=== PATIENT | male | born 1930 | race Caucasian/White ===

== ENCOUNTER 2016-08-18 09:26 | Emergency (ER) | payer BC, MEDICARE, OTHER ==
[2016-08-18] MEDS ORDERED: Lidocaine 1% 20 ML MDV INJECT ONE (10:14)
--- NOTE | 2016-08-18 10:14 | EDM.PDOC ---
ED HPI GENERAL MEDICAL PROBLEM - General Chief Complaint: Laceration Stated Complaint: FELL HIT HEAD Time Seen by Provider: 08/18/16 10:05 Source of Information: Reports: Patient History Limitations: Reports: No Limitations - History of Present Illness INITIAL COMMENTS - FREE TEXT/NARRATIVE: HISTORY AND PHYSICAL: History of present illness: [Patient is brought to the emergency room from the [facility]. He was found lying on the floor of his room in a pool of blood with bleeding from his head. Nursing staff believe the time of the fall was about 845 this morning. Patient is on hospice services. Hospice staff placed Steri-Strips over the laceration and contacted family who do not want any aggressive measures or diagnostic testing performed. Dr. Bagley was on [facility] rounds this morning and saw the patient and requested that he be transferred to the emergency room to have sutures placed to the laceration. Family agreed to have patient come to the ER for sutures but has refused any diagnostics at this time. The patient is largely nonverbal and does not answer when asked questions. [employer] is at the bedside. ] Review of systems: As per history of present illness and below otherwise all systems reviewed and negative. Past medical history: As per history of present illness and as reviewed below otherwise noncontributory. Surgical history: As per history of present illness and as reviewed below otherwise noncontributory. Social history: No reported history of drug or alcohol abuse. Family history: As per history of present illness and as reviewed below otherwise noncontributory. Physical exam: HEENT: 1.5cm x 6cm flap type laceration to L forehead, extending above left eyebrow to hairline. Swelling and mild ecchymosis is present. No foreign bodies noted. Impression: [Left forehead laceration] Plan: [Wound is closed as described in procedure note. Triple antibiotic ointment, Steri-Strips and pressure dressing are applied.] Definitive disposition and diagnosis as appropriate pending reevaluation and review of above. Head Pain Score (Numeric/FACES): 6 - Related Data Allergies Allergy/AdvReac Type Severity Reaction Status Date / Time folic acid Allergy Cannot Verified 08/18/16 10:12 Remember pollen extracts Allergy Cannot Verified 08/18/16 10:12 Remember Home Meds: Home Meds Acetaminophen [Tylenol Extra Strength] 1,000 mg PO ASDIRECTED PRN 02/10/15 [ History] Aspirin 81 mg PO DAILY 02/10/15 [History] Calcium Citrate/Vitamin D3 [Calcium Cit-Vit D 315-200] 1 tab PO BID 02/10/15 [ History] Hydrochlorothiazide 25 mg PO DAILY 02/10/15 [History] Multivitamin [Multivitamins] 1 tab PO DAILY 02/10/15 [History] Tamsulosin HCl 0.4 mg PO BEDTIME 02/10/15 [History] Mineral Oil/Petrolatum,White [Systane Nighttime Eye Oint] 1 applic EYEBOTH BEDTIME 02/11/15 [History] Psyllium Husk/Ca Carbonate [Metamucil Plus Calcium Capsule] 1 cap PO DAILY PRN 02/11/15 [History] Chlorpheniramine Maleate 4 mg PO ASDIRECTED PRN 02/27/15 [History] Loperamide [Imodium AD] 2 mg PO Q6H PRN 02/27/15 [History] Mag Hydrox/Al Hydrox/Simeth [Maalox Maximum Strength Susp] 30 ml PO ASDIRECTED PRN 03/02/15 [History] Dicyclomine HCl [Bentyl] 20 mg PO Q4H 07/10/15 [History] Rivastigmine [Exelon] 4.5 mg PO BIDMEALS 07/10/15 [History] Patient's Own Medication [Ptom] 2 each EYEBOTH BID each 07/12/15 [Rx] Lisinopril [Prinivil] 20 mg PO DAILY 12/14/15 [History] Loteprednol Etabonate [Alrex] 2 drop OP BID 12/14/15 [History] Simvastatin [Zocor] 20 mg PO BEDTIME 12/14/15 [History] Triamcinolone Acetonide [Triamcinolone Acetonide 0.1% Crm] 15 gm TOP TID [History] Past Medical History HEENT History: Reports: Other (See Below) Other HEENT History: dry eyes, chronic sinusitis Cardiovascular History: Reports: High Cholesterol, Hypertension Respiratory History: Reports: Pneumonia, Recurrent Gastrointestinal History: Reports: Hemorrhoids Musculoskeletal History: Reports: Other (See Below) Other Musculoskeletal History: generalized weakness Neurological History: Reports: Alzheimers Disease, Other (See Below) Other Neuro History: Lewy Body dementia Psychiatric History: Reports: Other (See Below) Other Psychiatric History: wandering disease Hematologic History: Reports: Anemia - Past Surgical History Dermatological Surgical History: Reports: Other (See Below) Social & Family History - Family History Family Medical History: Unobtainable Cardiac: Reports: [place] Neurological: Reports: Dementia Psychiatric: Reports: Schizophrenia, Other (See Below) Other Psychiatric Family History: mustapha Endocrine/Metabolic: Reports: Hypothyroidism Oncologic: Reports: Colon - Tobacco Use Smoking Status *Q: Unknown Ever Smoked Second Hand Smoke Exposure: No - Caffeine Use Caffeine Use: Reports: None - Recreational Drug Use Recreational Drug Use: No ED ROS GENERAL - Review of Systems Review Of Systems: ROS reveals no pertinent complaints other than HPI. ED EXAM, SKIN/RASH Exam: See Below ED SKIN PROCEDURES - Laceration/Wound Repair Left Forehead Lac/Wound length In cm: 7.5 Appearance: Subcutaneous, Irregular, Clean Distal NVT: Neuro & Vascular Intact Anesthetic Type: Local Local Anesthesia - Lidocaine (Xylocaine): 1% Plain Local Anesthetic Volume: Other (9cc) Skin Prep: Chlorhexidine (Hibiciens), Providone-Iodine (Betadine), Saline Exploration/Debridement/Repair: Wound Explored, No Foreign Material Found Closed with: Sutures Suture Size: other (2x 4-0 nylon, 7x 5-0 nylon) # of Sutures: 9 Suture Type: Nylon Sterile Dressing Applied: Nurse Tetanus Status Addressed: Yes Complications: No Course - Vital Signs Last Recorded V/S: Last Vital Signs Temp 98.1 F 08/18/16 10:12 Pulse 104 H 08/18/16 10:12 Resp 18 08/18/16 10:12 BP 175/97 H 08/18/16 10:12 Pulse Ox 94 L 08/18/16 10:12 - Orders/Labs/Meds Meds: Medications Discontinued Medications Generic Name Dose Route Start Last Admin Trade Name Freq PRN Reason Stop Dose Admin Lidocaine HCl 20 ml 08/18/16 10:14 Xylocaine 1% INJECT 08/18/16 10:15 ONETIME ONE Departure - Departure Time of Disposition: 10:20 Disposition: Home, Self-Care 01 Condition: Good Clinical Impression: Laceration of head Qualifiers: Encounter type: initial encounter Location of open wound of head: unspecified part of head Foreign body presence: without foreign body Qualified Code(s): S01.91XA - Laceration without foreign body of unspecified part of head, initial encounter - Discharge Information Instructions: Head Injury, Adult, Laceration Care, Adult Referrals: Yaniv Bagley MD [Primary Care Provider] - Forms: ED Department Discharge Additional Instructions: The following information is given to patients seen in the emergency department who are being discharged to home. This information is to outline your options for follow-up care. We provide all patients seen in our emergency department with a follow-up referral. The need for follow-up, as well as the timing and circumstances, are variable depending upon the specifics of your emergency department visit. If you don't have a primary care physician on staff, we will provide you with a referral. We always advise you to contact your personal physician following an emergency department visit to inform them of the circumstance of the visit and for follow-up with them and/or the need for any referrals to a consulting specialist. The emergency department will also refer you to a specialist when appropriate. This referral assures that you have the opportunity for follow-up care with a specialist. All of these measure are taken in an effort to provide you with optimal care, which includes your follow-up. Under all circumstances we always encourage you to contact your private physician who remains a resource for coordinating your care. When calling for follow-up care, please make the office aware that this follow-up is from your recent emergency room visit. If for any reason you are refused follow-up, please contact the [facility] emergency department at and asked to speak to the emergency department charge nurse. [facility] [address] [place] [id number] Follow-up for suture removal in 7 days. Apply triple antibiotic ointment and fresh dressing daily. Keep clean and dry for the first 24 hours. Return to ER as needed as discussed.
[2016-08-18] MEDS ORDERED: Bacitracin/Neomycin/Polymyxin B Oint 28.4 GM Tube TOP ONE (11:21)
[2016-08-18 12:21] VITALS: BP 202/98
== END 2016-08-18 11:40 | disposition home or self-care (01) ==
LOC: MW.ED 09:26
DX: S01.81XA Laceration without foreign body of other part of head, initial encounter (principal); I10 Essential (primary) hypertension; E78.00 Pure hypercholesterolemia, unspecified; G30.9 Alzheimer's disease, unspecified; F02.80 Dementia in other diseases classified elsewhere, unspecified severity, without behavioral disturbance, psychotic disturbance, mood disturbance, and anxiety; Z86.2 Personal history of diseases of the blood and blood-forming organs and certain disorders involving the immune mechanism; Z87.01 Personal history of pneumonia (recurrent); Z79.82 Long term (current) use of aspirin; Z79.899 Other long term (current) drug therapy; Z88.8 Allergy status to other drugs, medicaments and biological substances; Z91.09 Other allergy status, other than to drugs and biological substances; W19.XXXA Unspecified fall, initial encounter; Y92.129 Unspecified place in nursing home as the place of occurrence of the external cause
CPT/HCPCS: 12014; 99282; A9270